=== PATIENT | female | born 1985 | race American Indian/Alaskan Native ===

== ENCOUNTER 2024-10-11 19:19 | Emergency (ER) | payer BC, SELFPAY ==
[2024-10-11 19:28] VITALS: BP 183/109
[2024-10-11 19:48] LABS: % Basophils 0.1 % (0-2); % Eosinophils 1.5 % (0-6); % Immature Granulocytes 0.3 % (0-0.5); % Lymphocytes 33.8 % (20.5-51.1); % Monocytes 6.9 % (1.7-9.3); % Neutrophils 57.4 % (42.2-75.2); Absolute Eosinophils 0.1 10^3/uL (0-0.7); Absolute Lymphocytes 2.4 10^3/uL (1.2-3.4); Absolute Monocytes 0.5 10^3/uL (0.1-0.6); Absolute Neutrophils 4.1 10^3/uL (1.4-6.5); Hematocrit 30.8 % (37.0-47.0); Hemoglobin 9.5 g/dL (12.0-16.0); Mean Corp Hgb Conc. 30.8 g/dL (33.0-37.0); Mean Corpuscular Hgb 20.6 pg (27.0-31.0); Mean Corpuscular Volume 66.7 fL (81.0-99.0); Mean Platelet Volume 8.3 fL (7.4-10.4); Nucleated Red Blood Cells % 0 %; Platelet Count 432 10^3/uL (130-400); Red Blood Cell Count 4.62 10^6/uL (4.20-5.40); Red Cell Dist. Width 15.6 % (11.5-14.5); White Blood Cell Count 7.2 10^3/uL (4.8-10.8)
[2024-10-11 20:03] LABS: HCG, Serum Qualitative Screen Negative
[2024-10-11 20:07] VITALS: BP 169/99
[2024-10-11 20:11] LABS: ALT (SGPT) 16 U/L (0-35); AST (SGOT) 21 U/L (14-36); Albumin 4.2 g/dl (3.5-5.0); Alkaline Phosphatase 54 U/L (38-126); Blood Urea Nitrogen 10 mg/dl (7-17); Calcium 9.1 mg/dl (8.4-10.2); Carbon Dioxide 25 mmol/L (22-30); Chloride 100 mmol/L (98-107); Glucose 83 mg/dl (70-99); Potassium 3.7 mmol/L (3.5-5.1); Sodium 135 mmol/L (135-145); Total Bilirubin 0.4 mg/dl (0.2-1.3); Total Protein 7.9 g/dl (6.3-8.2); eGFR > 60.00
[2024-10-11 20:15] VITALS: BMI 35.9
[2024-10-11 20:15] LABS: Troponin I < 0.012 ng/ml
[2024-10-11 20:40] LABS: TSH 1.38 uIU/ml (0.47-4.68)
--- NOTE | 2024-10-11 20:47 | ED.GENMED ---
History of Present Illness
General
Chief Complaint: Chest Problem
Source: patient
Exam Limitations: none
Time Seen by Provider: 10/11/24 20:10
Nursing documentation reviewed up to this point in time: agreed with
History of Present Illness
History of Present Illness:
38-year-old female history of thyroid cancer status post thyroidectomy on thyroid replacement and calcium, presents with chest pressure palpitations said palpitations intermittently for some time worse today pain to go down her left arm lasted about
4 hours from 12 PM to 4 PM, no nausea or vomiting no fever, no syncope no calf pain on no hormonal therapy, no history DVT PE
Past History
Past History
ED Past Medical History: Cancer and Hypothyroidism
ED Past Surgical History: Other (Thyroidectomy)
Social History
Tobacco: Non-smoker
Alcohol: None
Drug: None
Personal:
Living: with family
Employment: Employed
Family History
Family History: CAD
Review of Systems
Review of Systems
All Other Systems: Not applicable
Constitutional: Denies fever or fatigue
EENT: Reports no symptoms
Respiratory: Reports trouble breathing; Denies cough
Cardiac: Reports chest pain and palpitations
ABD/GI: Reports no symptoms
: Reports no symptoms
Musculoskeletal: Reports no symptoms
Skin: Reports no symptoms
Neurological: Reports numbness
Phy Exam
Physical Exam
Physical Exam:
Physical Exam
General: no apparent distress, not acutely ill
Neck: No jaundice no goiter
Heart: s1/s2 regular rate and rhythm, no murmur. equal radial pulses.
Lungs: no acute respiratory distress. clear bilaterally
Abdomen: Nontender
Neuro: alert and oriented. no focal neurological deficits
Skin: no rash
Psychiatric: well kept. interactive and cooperative
Extremities: no edema. no calf tenderness.
Course
Orders/Labs/Results
Orders:
Orders
10/11/24 19:19
EKG [Electrocardiogram (*1)] Urgent
Reason for Study: Palpitations
10/11/24 19:20
EKG- Treatment ONCE
10/11/24 19:36
Test Result ONCE
10/11/24 19:41
Complete Blood Count/With Diff Urgent
Comprehensive Metabolic Panel Urgent
HCG, Serum Qualitative Screen Urgent
Comment: Notify provider if positive test present
TSH Urgent
Comment: ADD ON
Troponin I Urgent
10/11/24 19:43
D-Dimer Urgent
10/11/24 19:55
Add On- LAB Urgent
Tests Added?: TSH
Abnormal Lab Results
10/11/24
19:41
Hgb 9.5 L g/dL
(12.0-16.0)
Hct 30.8 L %
(37.0-47.0)
MCV 66.7 L fL
(81.0-99.0)
MCH 20.6 L pg
(27.0-31.0)
MCHC 30.8 L g/dL
(33.0-37.0)
RDW 15.6 H %
(11.5-14.5)
Plt Count 432 H 10^3/uL
(130-400)
10/11/24 19:41
10/11/24 19:41
Vital Signs
Initial and Last Documented VS:
Initial Vital Signs
Temp Pulse Resp BP Pulse Ox
97.9 F 79 18 183/109 100
10/11/24 19:28 10/11/24 19:28 10/11/24 19:28 10/11/24 19:28 10/11/24 19:28
Last Documented Vital Signs
Temp Pulse Resp BP Pulse Ox
97.9 F 71 15 169/99 100
10/11/24 19:28 10/11/24 20:45 10/11/24 20:45 10/11/24 20:07 10/11/24 20:45
MDM/Problems Addressed
Differential Diagnosis Includes:
Arrhythmia SVT PVCs ACS PE muscle strain electrolyte abnormality symptomatic hyperthyroidism
MDM/Problems Addressed:
Palpitation
Chronic conditions affecting care:
Thyroid
Acute Exacerbation and/or Progression of Chronic Illness:
Thyroid
*Pulse Oximetry
Patient hypoxic: no
*EKG
Interpreted by ED Provider?: Yes
Interpretation: normal
Comparison EKG: no comparison EKG present
Heart Rate: 78
Rate: normal
Rhythm: sinus
Ischemia: no ischemia
*Bridge Ironworker Interpretation
Rate: normal
Interpretation: normal
Heart Rate: 78
Rhythm: sinus
*Critical Care Note
Total Time (30-74mins, 75-104mins- exclusive of procedures): Not Applicable
Update Note
Update Note:
Update, patient nontoxic, symptoms appear atypical for ACS and/or PE, blood pressure is up, could be whitecoat, we will keep her on the mid level developer, check high-sensitivity D-dimer, consideration for starting beta-kayla, will have her follow-up
with PCP and/or beet flumer consideration for Holter monitoring
9:30 PM update labs noted blood pressure down to 150/90 she tells me she is usually hypotensive, will hold on starting any meds, concerned it could cause more harm than good she will follow-up with her PCP
ED Attending Note
-
Portions of this chart may have been created with voice recognition software.� Occasional wrong word or��sound alike� substitutions may have occurred due to the inherent limitations of voice recognition software.
Discharge Plan
Departure
Patient Disposition: Home (Routine Discharge)
Date of Disposition: 10/11/24
Time of Disposition: 21:29
Patient with high blood pressure during this ER visit?: Yes
Condition: Good
Discharge Problem:
Heart palpitations
Instructions: BLOOD PRESSURE, Palpitations ED
Referrals:
Candace Woodard MD [Family Provider] - Next open appointment
Activity Restrictions/Additional Instructions:
Follow-up with your primary care provider and airline ticket agent
Discuss your symptoms with him or her, and need for mid level developer
Interventions
Interventions:
*Risk Screen - Suicide Last Done: 10/11/24 19:28
*General Assessment Last Done: 10/11/24 19:28
*Neglect/Abuse Screening Last Done: 10/11/24 19:28
*ED- Fall Risk Assessment Last Done: 10/11/24 19:28
*ED COVID-19 Vaccine History Last Done: 10/11/24 19:28
ED- Cardiac Assessment Last Done: 10/11/24 20:23
ED- Pulmonary Assessment Last Done: 10/11/24 20:23
Discharge Date and Time
Print Language: MONTSERRATIAN
[2024-10-11 21:00] VITALS: BP 154/91
[2024-10-11 21:02] LABS: D-Dimer 0.37 ug/mlFEU (0.00-0.50)
== END 2024-10-11 22:05 | disposition home or self-care (01) ==
LOC: EMR 19:19
PROVIDERS: EMERGENCY PHYSICIAN Emergency Medicine; FAMILY PHYSICIAN Family Medicine
DX: R00.2 Palpitations (principal); R03.0 Elevated blood-pressure reading, without diagnosis of hypertension; R07.89 Other chest pain; Z85.850 Personal history of malignant neoplasm of thyroid; E89.0 Postprocedural hypothyroidism
CPT/HCPCS: 99284; 80053; 84443; 84484; 84703; 85025; 85379; 93005